=== PATIENT | male | born 1985 | race Hispanic/Latino ===

== ENCOUNTER 2017-05-01 21:46 | Emergency (ER) | payer BC ==
[2017-05-01 22:26] VITALS: TEMP 97.8
--- NOTE | 2017-05-01 22:28 | ED.PDOC ---
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 Occurred: just prior to arrival Pain - Lower Extremity: moderate: Right Ankle Method of Injury: fell, twisted Improving Factors: rest Worsening Factors: movement Associated Symptoms: pain right ankle Allergies/Adverse Reactions: Allergies NO KNOWN ALLERGY Allergy (Verified 05/01/17 22:17) Home Medications: Ambulatory Orders Acetamin W/Cod #3 Tab [Tylenol w/CODEINE #3] 1 ea PO Q6HRS PRN #14 tab 05/01/17 Review of Systems - Review of Systems Constitutional: States: no symptoms reported EENTM: States: no symptoms reported Respiratory: States: no symptoms reported Cardiology: States: no symptoms reported Gastrointestinal/Abdominal: States: no symptoms reported Musculoskeletal: States: see HPI All other Systems: Reviewed and Negative, No Change from Baseline Past Medical History (General) - Patient Medical History Hx Asthma: No Hx Hypertension: No Hx Diabetes: No Surgical History: no surgical history - Vaccination History Hx Tetanus, Diphtheria Vaccination: No Hx Influenza Vaccination: No Hx Pneumococcal Vaccination: No - Social History Hx Tobacco Use: No Hx Alcohol Use: Yes - occ Family Medical History - Family History Mother Living Status: Still Living Hx Family Congestive Heart Failure: Yes Hx Family Hypertension: Yes Hx Family Stroke: Yes Hx Cardiac Disease: Yes Hx Family Diabetes: Yes Physical Exam - Physical Exam General Appearance: Alert, Comfortable, Frail Eyes, Ears, Nose, Throat: PERRL/EOMI, normal ENT inspection Neck: non-tender, full range of motion, supple Cardiovascular/Respiratory: regular rate, rhythm, no M/R/G, normal peripheral pulses Gastrointestinal/Abdominal: non-tender, no organomegaly Back: no vertebral tenderness Leg: non-tender, no evidence of injury Knee: non-tender, no evidence of injury Foot: bone tenderness - right ankle, limited ROM - due to pain right ankle, soft tissue tenderness - right ankle, swelling - right ankle Neuro/Tendon: normal sensation, normal motor functions, normal tendon functions Mental Status: alert, oriented x 3 Skin: normal color, warm/dry Progress - Progress Progress: 05/01/17 22:39 Last Vital Signs Temp 97.8 F 05/01/17 22:19 Pulse 93 H 05/01/17 22:19 Resp 18 05/01/17 22:19 BP 124/81 05/01/17 22:19 Pulse Ox 95 05/01/17 22:19 - EKG/XRAY/CT XRAY: ankle - right ankle sprain Departure - Departure Clinical Impression: Ankle sprain Qualifiers: Encounter type: initial encounter Involved ligament of ankle: unspecified ligament Laterality: right Qualified Code(s): S93.401A - Sprain of unspecified ligament of right ankle, initial encounter Time of Disposition: 23:00 Disposition: Discharge to Home or Self Care Condition: Fair Departure Forms: ED Discharge - Pt. Copy, Patient Portal Self Enrollment Instructions: DI for Ankle Sprain, Ankle Sprain Referrals: SERVANDO BLAKE [Primary Care Provider] - 1-2 Weeks Prescriptions: Acetamin W/Cod #3 Tab [Tylenol w/CODEINE #3] 1 ea PO Q6HRS PRN #14 tab PRN Reason: Pain Home Medications: Ambulatory Orders Acetamin W/Cod #3 Tab [Tylenol w/CODEINE #3] 1 ea PO Q6HRS PRN #14 tab 05/01/17 Additional Instructions: ELEVATE RIGHT LEG at DEGREES AT BEDTIME until better;Continue with ice pack 20 minutes 3 x a day as needed during WAKING HOURS ONLY for 5 days;May also take ALEVE(otc) 1-2 tablets by mouth am/pm for pain/swelling
--- NOTE | 2017-05-01 22:53 | RAD ---
EXAM DESCRIPTION: Ankle,Right 3 Views CLINICAL HISTORY: fell jumping of fence COMPARISON: None FINDINGS: 3 views were submitted. No fracture or dislocation is identified. There are degenerative changes. Irregularity of the distal fibula appears well-corticated, likely sequela of prior injury and likely chronic. There is soft tissue swelling overlying lateral malleolus. Bone marrow attenuation is unremarkable. No radiopaque foreign body is identified. IMPRESSION: No definite acute fracture or dislocation. If pain persists, repeat in 7-10 days is recommended. Electronically signed by: Lupillo Beth 05/01/2017 10:52 PM [facility]
[2017-05-01] MEDS ORDERED: HYDROCOD/APAP 10/325 (ER DISP) # 3 tablets PO ONE (23:07)
[2017-05-01 23:32] VITALS: BP 132/78; O2SAT 99
== END 2017-05-01 23:25 | disposition home or self-care (01) ==
LOC: ER 21:46
DX: S93.401A Sprain of unspecified ligament of right ankle, initial encounter (principal); X50.1XXA Overexertion from prolonged static or awkward postures, initial encounter; Y92.9 Unspecified place or not applicable